=== PATIENT | male | born 1940 | race Caucasian/White ===

== ENCOUNTER 2021-02-11 02:34 | Day surgery (SDC) | payer MEDICARE, SELFPAY ==
[2021-01-23 14:35] VITALS: BMI 32.8
--- NOTE | 2021-02-10 10:12 | WPDANESEPPF ---
Anes - Initial Pre Proc Eval Procedure: Operation Date: 02/11/21 09:00 Proposed Procedures p Colonoscopy - Dale Espinoza MD Date/Time: 02/10/21 10:12 Surgeon: Dale Espinoza MD Pre Op Diagnosis: change in bowel habits Patient Data Age: 81 Gender: M Height: 1.88 m Weight: 116 kg Allergies Allergy/AdvReac Type Severity Reaction Status Date / Time No Known Allergies Allergy Verified 02/11/21 08:11 Home Medications Medication Instructions Recorded Confirmed Type bicalutamide 50 mg tablet 50 mg PO DAILY 06/20/19 02/11/21 History donepezil 10 mg tablet 10 mg PO DAILY #30 tablet 10/05/19 02/11/21 Rx aspirin 81 mg tablet,delayed 81 mg PO DAILY 12/28/19 02/11/21 History release metronidazole 0.75 % topical gel 1 applic TOPICAL DAILY 12/28/19 02/11/21 History allopurinol 100 mg tablet 100 mg PO DAILY #90 tablet 01/06/21 02/11/21 Rx amitriptyline 10 mg tablet 10 - 20 mg PO .hs #180 tablet 01/06/21 02/11/21 Rx amlodipine 10 mg tablet 10 mg PO DAILY #90 tablet 01/06/21 02/11/21 Rx atorvastatin 20 mg tablet 20 mg PO DAILY #90 tablet 01/06/21 02/11/21 Rx lisinopril 40 mg tablet 40 mg PO DAILY #90 tablet 01/06/21 02/11/21 Rx metoprolol tartrate 50 mg tablet 50 mg PO DAILY #90 tablet 01/06/21 02/11/21 Rx Patient hx anesthesia problems: none Family hx anesthesia problems: none Results Review: All pre-operative results and documents have been reviewed as part of the pre-operative evaluation. [facility] Past Medical History Medical History (Updated 02/10/21 @ 10:12 by Jerad Uribe DO) Essential (primary) hypertension Gout, unspecified History of prostate cancer Hyperlipidemia Sleep apnea in adult Social History Social History Smoking packs per day: 1 Smoking cigarettes per day: 20.0 Years smoked: 40 Smoking pack-years: 40.00 Smoking status: Former smoker Tobacco type: cigarettes Second hand tobacco smoke exposure: No Smoking end date: 04/25/98 Alcohol intake: current Drinks per week: 2 Living arrangements: with family Spiritual care concerns: No Anes - Eval Final PreProcedure Day of Procedure 02/10/21 10:12 Patient weight: obese Heart: regular rate and rhythm Lungs: clear to auscultation and normal air movement Airway: Mallampati scale class II Neurological: alert and oriented Last oral intake: >/= 8 hours ASA classification: III Emergent: no Anesthetic plan: proceed Anesthesia type and monitoring: general GIVS and standard monitoring Results Review: All pre-operative results and documents have been reviewed as part of the pre-operative evaluation. Informed Consent: The patient's anesthetic plan and its attendant risks and benefits were discussed with the patient/family/POA. Questions were solicited and answers provided to the satisfaction of the patient/family/POA.
[2021-02-11 08:12] VITALS: BP 159/69; PULSE 87; RESP 20; TEMP 35.3; O2SAT 98
[2021-02-11] MEDS: LACTATED RINGERS 1,000 ML 150 ML IV CONT (08:16)
--- NOTE | 2021-02-11 09:01 | WPDGICN ---
Assessment and Plan Assessment and plan (1) History of colon polyps: Code(s): Z86.010 - Personal history of colonic polyps Status: Acute Assessment and Plan: Patient has a prior history of colon polyps for this reason surveillance colonoscopy will be performed. Further recommendations will be given after endoscopy. (2) Change in stool: Code(s): R19.5 - Other fecal abnormalities Status: Acute Assessment and Plan: Patient has alteration of bowel habits. Referral notes suggest mucus in stool. Prior history of episodic diarrhea suggestive of irritable bowel syndrome. Plan to continue FiberCon supplements 2 tabs p.o. b.i.d.. GI Consult Note Consult date/time: 02/11/21 09:01 HPI: Nicholas Ariza is a 81 year old male Presents for screening colonoscopy. Patient has a prior history of colon polyps. Most recently 2013. Reports his current weight appetite bowel movements are normal. He previously had episodic diarrhea stools that has improved dramatically on taking fiber supplements. Denies any bleeding except occasionally after a hard bowel movement straining he has attributed this to hemorrhoids. Family history is noncontributory. Review of Systems Review of Systems: All systems reviewed & are unremarkable except as noted in HPI and below PMFSH Past Medical History Medical History (Updated 02/11/21 @ 09:02 by Dale Espinoza MD) Essential (primary) hypertension Gout, unspecified History of prostate cancer Hyperlipidemia Sleep apnea in adult Social History Social History Smoking packs per day: 1 Smoking cigarettes per day: 20.0 Years smoked: 40 Smoking pack-years: 40.00 Smoking status: Former smoker Tobacco type: cigarettes Second hand tobacco smoke exposure: No Smoking end date: 04/25/98 Alcohol intake: current Drinks per week: 2 Living arrangements: with family Spiritual care concerns: No Meds Home Medications and Allergies Home Medications Medication Instructions Recorded Confirmed Type bicalutamide 50 mg tablet 50 mg PO DAILY 06/20/19 02/11/21 History donepezil 10 mg tablet 10 mg PO DAILY #30 tablet 10/05/19 02/11/21 Rx aspirin 81 mg tablet,delayed 81 mg PO DAILY 12/28/19 02/11/21 History release metronidazole 0.75 % topical gel 1 applic TOPICAL DAILY 12/28/19 02/11/21 History allopurinol 100 mg tablet 100 mg PO DAILY #90 tablet 01/06/21 02/11/21 Rx amitriptyline 10 mg tablet 10 - 20 mg PO .hs #180 tablet 01/06/21 02/11/21 Rx amlodipine 10 mg tablet 10 mg PO DAILY #90 tablet 01/06/21 02/11/21 Rx atorvastatin 20 mg tablet 20 mg PO DAILY #90 tablet 01/06/21 02/11/21 Rx lisinopril 40 mg tablet 40 mg PO DAILY #90 tablet 01/06/21 02/11/21 Rx metoprolol tartrate 50 mg tablet 50 mg PO DAILY #90 tablet 01/06/21 02/11/21 Rx Allergies Allergy/AdvReac Type Severity Reaction Status Date / Time No Known Allergies Allergy Verified 02/11/21 08:11 Vital Signs Vital Signs - 24 hr 02/11/21 08:12 Temperature 95.6 F L Pulse Rate 87 Respiratory Rate 20 Blood Pressure 159/69 H Pulse Oximetry 98 Exam Narrative: Physical exam reveals patient be alert. Vital signs stable. HEENT exam is unremarkable. Patient is anicteric. Lungs are clear to auscultation and percussion. Heart is without murmur or extra sounds. Abdominal exam bowel sounds are present soft nontender with no organomegaly. Digital external rectal exam is normal.
[2021-02-11 09:23] VITALS: BP 90/41; PULSE 71; RESP 18; O2SAT 95
[2021-02-11 09:33] VITALS: BP 98/52; PULSE 80; RESP 19; O2SAT 96
[2021-02-11 09:43] VITALS: BP 123/55; PULSE 77; RESP 21; O2SAT 97
== END 2021-02-11 09:53 | disposition home or self-care (01) ==
PROVIDERS: PCP Internal Medicine; Visit Provider Internal Medicine Gastroenterology
PROC: 0DJD8ZZ Inspection of Lower Intestinal Tract, Via Natural or Artificial Opening Endoscopic (ICD-10-PCS; CPT 45378; principal; 2021-02-11 09:00)
DX: Z12.11 Encounter for screening for malignant neoplasm of colon (principal); D12.2 Benign neoplasm of ascending colon; K64.8 Other hemorrhoids; K57.30 Diverticulosis of large intestine without perforation or abscess without bleeding; R19.4 Change in bowel habit; R19.5 Other fecal abnormalities; I10 Essential (primary) hypertension; E78.5 Hyperlipidemia, unspecified; G47.30 Sleep apnea, unspecified; M10.9 Gout, unspecified; Z87.891 Personal history of nicotine dependence; Z79.82 Long term (current) use of aspirin
CPT/HCPCS: 45385; 88305; J2704; J7120